=== PATIENT | male | born 1965 | race Two or more races ===

== ENCOUNTER 2017-08-13 08:06 | Emergency (ER) | payer OTHER, MEDICAID ==
[~2017-08-13] VITALS: Ht 175.3 cm; Wt 90.7 kg
[2017-08-13 09:30] LABS: Basophils # (auto) 0 uL; Basophils % (auto) 0.6 % (0.0-2.0); Eosinophils # (auto) 0.1 uL; Eosinophils % (auto) 1.9 % (0.0-7.0); Hematocrit 43.4 % (41.0-53.0); Hemoglobin 14.6 g/dL (13.5-17.5); Lymphocytes # (auto) 1.7 uL; Lymphocytes % (auto) 23.4 % (10.0-50.0); Mean Corpuscular Hemoglobin 31.4 pg (28.0-32.0); Mean Corpuscular Hgb Conc. 33.5 g/dL (32.0-36.0); Mean Corpuscular Volume 93.8 fL (80.0-100.0); Monocytes # (auto) 0.6 uL; Monocytes % (auto) 7.7 % (0.0-12.0); Neutrophils % (auto) 66.4 % (37.0-80.0); Platelet Count (auto) 226 10^3/uL (140-450); Red Blood Cells 4.63 10^6/uL (4.5-5.90); Red Cell Distribution Width 13.9 % (11.8-14.3); White Blood Cell 7.5 10^3/uL (4.4-10.8)
[2017-08-13 09:51] LABS: Alanine Aminotransferase 73 U/L (16-61); Albumin 4.1 g/dL (3.4-5.0); Alkaline Phosphatase 119 U/L (45-117); Anion Gap 3 (5-15); Aspartate Aminotransferase 41 U/L (15-37); BUN/Creatinine Ratio 11.8; Bilirubin, Total 0.2 mg/dL (0.2-1.0); Blood Alcohol < 3.0 mg/dL (0-5); Blood Urea Nitrogen 12 mg/dL (7-18); Calcium 8.8 mg/dL (8.5-10.1); Carbon Dioxide 27 mmol/L (21-32); Chloride 111 mmol/L (98-107); GFR African American 99 mL/min; GFR Non-African American 82 mL/min; Glucose 106 mg/dL (74-106); Potassium 3.9 mmol/L (3.5-5.1); Sodium 141 mmol/L (136-145); Total Protein 7.9 g/dL (6.4-8.2)
[2017-08-13 11:24] LABS: Urine Bacteria FEW /hpf (None Seen); Urine Blood Negative /uL (Negative); Urine Specific Gravity 1.009 (1.001-1.035); Urine WBC 2 /hpf (0 - 3)
[2017-08-13 11:36] LABS: Alcohol, Urine < 3.0 mg/dL (0-5); Amphetamine Screen, Urine NEGATIVE (NEGATIVE); Barbiturate Scree,Urine NEGATIVE (NEGATIVE); Benzodiazephine Screen, Urine NEGATIVE (NEGATIVE); Cannabinoid Screen, Urine NEGATIVE (NEGATIVE); Cocaine Screen, Urine NEGATIVE (NEGATIVE); Opiate Scree,Urine NEGATIVE (NEGATIVE); Phencyclidine Screen, Urine NEGATIVE (NEGATIVE)
[2017-08-13 12:10] VITALS: BP 134/93
== END 2017-08-13 12:36 | disposition left against medical advice (07) ==
LOC: ER 08:06 → EDBD 08:06 → EDUNIT# 08:06 → ER 12:35
DX: R41.82 Altered mental status, unspecified (principal)
CPT/HCPCS: 36415; 70450; 80053; 80307; 80320; 81001; 85025